=== PATIENT | female | born 1975 | race Caucasian/White ===

== ENCOUNTER 2020-11-11 08:08 | Outpatient (CLI) | payer OTHER, SELFPAY | END 2020-11-11 08:09 | disposition home or self-care (01) | LOC: ANHCOVIDVC 08:08 | PROVIDERS: PCP Obstetrics & Gynecology | DX: Z23 Encounter for immunization (principal) | CPT/HCPCS: 0001A; 91300 ==

== ENCOUNTER 2020-12-02 08:01 | Outpatient (CLI) | payer OTHER, SELFPAY | END 2020-12-02 08:02 | disposition home or self-care (01) | LOC: ANHCOVIDVC 08:01 | PROVIDERS: PCP Obstetrics & Gynecology | DX: Z23 Encounter for immunization (principal) | CPT/HCPCS: 0002A; 91300 ==

== ENCOUNTER → 2021-08-14 08:44 | Outpatient (CLI) | payer OTHER, SELFPAY ==
--- NOTE | ~2021-08-14 | US_ITS ---
EXAMINATION: US transvaginal EXAM DATE: 08/14/2021 09:12 INDICATION: Severe LLQ adnexal pain. TECHNIQUE: Pelvic transvaginal sonogram was performed. There are multiple grayscale and Doppler imag es available for interpretation. There is no prior study for comparison. FINDINGS: Uterus measures 7.7 x 4.0 x 4.3 cm, with posterior myometrial fibroid measuring 1.4 cm. Th ere is also IUD suspected to be in place within the endometrial cavity. Endometrial stripe measures 4 mm, within normal limits. There is no free pelvic fluid. Right adnexa: The ovary measures 2.2 x 1.4 x 1.9 cm and is morphologically normal. Ovarian vascular f low confirmed. Left adnexa: The ovary measures 3.6 x 1.8 x 2.3 cm and is morphologically normal. Ovarian vascular fl ow confirmed. IMPRESSION: 1. IUD in expected position. 2. Small fibroid. 3. Normal ovaries. Reviewed, dictated and finalized at location B. [employer]
== END ==
PROVIDERS: PCP Family Medicine; Visit Provider Nurse Practitioner
DX: R10.32 Left lower quadrant pain (principal); Z97.5 Presence of (intrauterine) contraceptive device; D25.9 Leiomyoma of uterus, unspecified
CPT/HCPCS: 76830

== ENCOUNTER 2023-08-23 00:24 | Day surgery (SDC) | payer OTHER, SELFPAY ==
[2023-07-26 15:01] VITALS: BMI 41.8
--- NOTE | 2023-08-19 12:22 | SUR.PREOP ---
Patient called regarding upcoming procedure. Reviewed preop instructions, appointment times, and procedure prep.
[2023-08-23 06:26] VITALS: BP 116/75; PULSE 88; RESP 18; TEMP 36.1; O2SAT 98
[2023-08-23] MEDS: LACTATED RINGERS 1,000 ML 150 ML IV CONT (06:45)
[2023-08-23 06:46] LABS: Glucose Point of Care 160 mg/dl (65-105)
--- NOTE | 2023-08-23 07:25 | WPDANESEPPF ---
Anes - Initial Pre Proc Eval Procedure: Operation Date: 08/23/23 07:30 Proposed Procedures p Colonoscopy - Yahir Thakkar MD Date/Time: 08/23/23 07:25 Surgeon: Yahir Thakkar MD Pre Op Diagnosis: neoplasm screening Patient Data Age: 47 Gender: F Height: 1.6 m Weight: 113.2 kg Last Vital Signs Temp 97 F L 08/23/23 06:26 Pulse 88 08/23/23 06:26 Resp 18 08/23/23 06:26 BP 116/75 08/23/23 06:26 Pulse Ox 98 08/23/23 06:26 O2 Del Method Room Air 08/23/23 06:26 Allergies Allergy/AdvReac Type Severity Reaction Status Date / Time Penicillins Allergy Severe Anaphylaxis Verified 08/23/23 06:25 Home Medications Medication Instructions Recorded Confirmed Type atorvastatin 10 mg tablet 10 mg PO DAILY 06/06/23 07/26/23 History cinnamon bark 500 mg capsule 1,000 mg PO DAILY 06/06/23 07/26/23 History clobetasol 0.05 % topical ointment 1 applic topical DAILY PRN other 06/06/23 07/26/23 History fluoxetine 20 mg capsule 40 mg PO DAILY 06/06/23 07/26/23 History metformin 500 mg tablet,extended 1,000 mg PO DAILY 06/06/23 07/26/23 History release 24 hr multivit-iron 18 mg-folic acid 400 1 tablet PO DAILY 06/06/23 07/26/23 History mcg-calcium 500 mg-minerals tablet (One-A-Day Womens Formula) naproxen sodium 220 mg capsule 440 mg PO DAILY 06/06/23 07/26/23 History semaglutide 0.25 mg or 0.5 mg (2 0.5 mg subcut WEEKLY 06/06/23 07/26/23 History mg/3 mL) subcutaneous pen injector (Ozempic) zinc gluconate 50 mg tablet 50 mg PO DAILY 06/06/23 07/26/23 History Laboratory Tests 08/23/23 06:43 POC Capillary Glucose 160 H mg/dl (65-105) Patient hx anesthesia problems: none Family hx anesthesia problems: none Results Review: All pre-operative results and documents have been reviewed as part of the pre-operative evaluation. [facility] Past Medical History Medical History (Updated 06/06/23 @ 10:37 by Beena Kay NP) Allergies Anxiety Diabetes Hyperlipidemia due to type 2 diabetes mellitus Irritable bowel syndrome Family History Family History (Updated 06/06/23 @ 09:41 by Claritza Nguyen [facility]) Father Skin cancer Diabetes mellitus Heart disease Hypertension Anxiety Depression Grandparent Skin cancer maternal grandparent Diabetes mellitus Grandparent Cancer paternal grandparent Diabetes mellitus Mother Diabetes mellitus Heart disease Hypertension Anxiety Depression Other Breast cancer Social History Social History (Updated 06/06/23 @ 09:42 by Claritza Nguyen [facility]) Smoking status: Never smoker Alcohol intake: current Alcohol use details: occasional Substance use type: does not use Lack of Transportation: No Lack of Food: Never True Current Housing: I Have Housing Concerned About Future Housing: No Difficulty Paying Gas/Electric Bills: No Difficulty Paying for Meds: No Currently Unemployed: No Education: Master's Degree or Higher Difficulty w/ Childcare or Family Care: No Living arrangements: with family Spiritual care concerns: No Anes - Eval Final PreProcedure Day of Procedure 08/23/23 07:25 Patient weight: morbidly obese Heart: regular rate and rhythm Lungs: clear to auscultation Airway: Mallampati scale class III Neurological: alert and oriented Last oral intake: >/= 8 hours ASA classification: III Emergent: no Anesthetic plan: proceed Anesthesia type and monitoring: general GIVS and standard monitoring Results Review: All pre-operative results and documents have been reviewed as part of the pre-operative evaluation. Informed Consent: The patient's anesthetic plan and its attendant risks and benefits were discussed with the patient/family/POA. Questions were solicited and answers provided to the satisfaction of the patient/family/POA.
--- NOTE | 2023-08-23 07:28 | PM.HPGS ---
History of Present Illness History of Present Illness Consent: Risks, benefits, and alternatives have been discussed and questions answered. Patient agrees to proceed with procedure. Chief complaint: neoplasm screening Narrative: Valerie Soto is a 47 year old female here for first screening colonoscopy Review of Systems Constitutional: Constitutional: Denies headache(s) and Denies weakness Eyes: Eyes: Denies blurry vision ENT: Reports Normal hearing present, Denies headache(s) and Denies neck pain Cardiovascular: Cardiovascular: Denies chest pain and Denies dyspnea Respiratory: Respiratory: Denies dyspnea Gastrointestinal: Gastrointestinal: Reports no additional gastrointestinal complaints Genitourinary: Genitourinary: Denies dysuria Musculoskeletal: Musculoskeletal: Denies neck pain Integumentary/Breasts: Skin/Breast: Denies dry skin Neurologic: Reports Normal hearing present, Denies headache(s) and Denies weakness Psychiatric: Psychiatric: Denies anxiety Endocrine: Endocrine: Denies change in body appearance Hematologic/Lymphatic: Hematologic/Lymphatic: Denies easy bleeding Allergic/Immunologic: Allergic/Immunologic: Denies urticaria PMFSH Past Medical History Medical History (Updated 06/06/23 @ 10:37 by Beena Kay NP) Allergies Anxiety Diabetes Hyperlipidemia due to type 2 diabetes mellitus Irritable bowel syndrome Family History Family History (Updated 06/06/23 @ 09:41 by Claritza Nguyen CMA) Father Skin cancer Diabetes mellitus Heart disease Hypertension Anxiety Depression Grandparent Skin cancer maternal grandparent Diabetes mellitus Grandparent Cancer paternal grandparent Diabetes mellitus Mother Diabetes mellitus Heart disease Hypertension Anxiety Depression Other Breast cancer Social History Social History (Updated 06/06/23 @ 09:42 by Claritza Nguyen CMA) Smoking status: Never smoker Alcohol intake: current Alcohol use details: occasional Substance use type: does not use Lack of Transportation: No Lack of Food: Never True Current Housing: I Have Housing Concerned About Future Housing: No Difficulty Paying Gas/Electric Bills: No Difficulty Paying for Meds: No Currently Unemployed: No Education: Master's Degree or Higher Difficulty w/ Childcare or Family Care: No Living arrangements: with family Spiritual care concerns: No Meds Home Medications and Allergies Home Medications Medication Instructions Recorded Confirmed Type atorvastatin 10 mg tablet 10 mg PO DAILY 06/06/23 07/26/23 History cinnamon bark 500 mg capsule 1,000 mg PO DAILY 06/06/23 07/26/23 History clobetasol 0.05 % topical ointment 1 applic topical DAILY PRN other 06/06/23 07/26/23 History fluoxetine 20 mg capsule 40 mg PO DAILY 06/06/23 07/26/23 History metformin 500 mg tablet,extended 1,000 mg PO DAILY 06/06/23 07/26/23 History release 24 hr multivit-iron 18 mg-folic acid 400 1 tablet PO DAILY 06/06/23 07/26/23 History mcg-calcium 500 mg-minerals tablet (One-A-Day Womens Formula) naproxen sodium 220 mg capsule 440 mg PO DAILY 06/06/23 07/26/23 History semaglutide 0.25 mg or 0.5 mg (2 0.5 mg subcut WEEKLY 06/06/23 07/26/23 History mg/3 mL) subcutaneous pen injector (Likeeds) zinc gluconate 50 mg tablet 50 mg PO DAILY 06/06/23 07/26/23 History Allergies Allergy/AdvReac Type Severity Reaction Status Date / Time Penicillins Allergy Severe Anaphylaxis Verified 08/23/23 06:25 Vital Signs Vital Signs - 24 hr 08/23/23 06:26 Temperature 97 F L Pulse Rate 88 Respiratory Rate 18 Blood Pressure 116/75 Pulse Oximetry 98 Oxygen Delivery Room Air Exam Const: General: comfortable and no acute distress HENMT: Face/Nose/Sinus: Normal nares present Eyes: General: appearance normal, both eyes and all related structures Neck: Neck: no JVD Resp: Auscultation: clear to auscultation bilaterally Ca
[2023-08-23 07:46] VITALS: BP 116/57; PULSE 101; RESP 18; O2SAT 97
[2023-08-23 07:56] VITALS: BP 100/54; PULSE 95; RESP 20; O2SAT 100
[2023-08-23 08:06] VITALS: BP 109/69; PULSE 87; RESP 18; O2SAT 98
== END 2023-08-23 08:18 | disposition home or self-care (01) ==
PROVIDERS: PCP Internal Medicine; Referring Provider Nurse Practitioner; Visit Provider Internal Medicine Gastroenterology
PROC: 0DJD8ZZ Inspection of Lower Intestinal Tract, Via Natural or Artificial Opening Endoscopic (ICD-10-PCS; CPT 45378; principal; 2023-08-23 07:30)
DX: Z12.11 Encounter for screening for malignant neoplasm of colon (principal); K63.5 Polyp of colon; K64.8 Other hemorrhoids; E11.9 Type 2 diabetes mellitus without complications; E78.5 Hyperlipidemia, unspecified; K58.9 Irritable bowel syndrome, unspecified; F41.9 Anxiety disorder, unspecified; E66.01 Morbid (severe) obesity due to excess calories; Z68.41 Body mass index [BMI] 40.0-44.9, adult; Z79.84 Long term (current) use of oral hypoglycemic drugs; Z79.85 Long-term (current) use of injectable non-insulin antidiabetic drugs
CPT/HCPCS: 45385; 82948; 88305; J2704; J7120

== ENCOUNTER → 2023-09-28 15:50 | Outpatient (CLI) | payer OTHER, SELFPAY ==
--- NOTE | ~2023-09-28 | MM_ITS ---
EXAMINATION: MM screening louann BI w joan HISTORY: Screening mammogram TECHNIQUE: Craniocaudal and mediolateral oblique 3-D tomosynthesis images were obtained and synthetic 2-D images were generated. CAD analysis was submitted and interpreted. COMPARISON: No prior mammogram is available for comparison at this institution. BREAST PARENCHYMAL COMPOSITION: There are scattered areas of fibroglandular density. FINDINGS: Right breast: An asymmetry is present in the anterior third of the slightly outer breast 3.5 cm from the nipple on the craniocaudal view. A second asymmetry is seen in the middle/posterior third of the outer breast 10 cm from the nipple on the craniocaudal view. Left breast: An asymmetry is present in the middle third of the outer breast 10 cm from the nipple on the craniocaudal view. A subareolar asymmetry is also noted on the craniocaudal view. Changes of exc isional biopsy with associated fat necrosis are noted in the posterior third of the upper breast. IMPRESSION: 1. Bilateral breast findings as described above which may represent the patient's baseline however no comparison is currently available. 2. Comparison with prior mammograms is necessary. BI-RADS Category 0: Incomplete: Needs comparison with prior mammograms. Reviewed, dictated and finalized at location L. [employer] SUPER[employer] IMPRESSION: 1. Bilateral breast findings as described above which may represent the patient 's baseline however no comparison is currently available. 2. Comparison with prior mammograms is necessary. BI-RADS Category 0: Incomplete: Needs comparison with prior mammograms.
== END ==
PROVIDERS: PCP Nurse Practitioner; Visit Provider Nurse Practitioner
DX: Z12.31 Encounter for screening mammogram for malignant neoplasm of breast (principal); R92.8 Other abnormal and inconclusive findings on diagnostic imaging of breast
CPT/HCPCS: 77063; 77067

== ENCOUNTER 2024-11-07 15:29 | Outpatient (CLI) | payer OTHER, SELFPAY ==
--- NOTE | ~2024-11-07 | MM_ITS ---
EXAMINATION: MM screening louann BI w joan HISTORY: Screening TECHNIQUE: Craniocaudal and mediolateral oblique 3-D tomosynthesis images were obtained and synthetic 2-D images were generated. CAD analysis was submitted and interpreted. COMPARISON: Comparison to multiple prior studies sequentially, with oldest reviewed study dated 02/2021. BREAST PARENCHYMAL COMPOSITION: Not dense: There are scattered areas of fibroglandular density. FINDINGS: The left breast is stable without evidence for malignancy. There is focal fat necrosis in t he upper inner quadrant of the left breast, posteriorly with developing calcifications. There are dev eloping asymmetries laterally in the right breast on CC view. IMPRESSION: 1. Developing right breast asymmetries laterally on CC view. 2. Additional mammographic views and possible breast ultrasound are recommended. BI-RADS Category 0: Incomplete: Needs additional imaging evaluation. Reviewed, dictated and finalized at location B. IMPRESSION: 1. Developing right breast asymmetries laterally on CC view. 2. Additional mammographic views and possible breast ultrasound are recommended . BI-RADS Category 0: Incomplete: Needs additional imaging evaluation.
== END 2024-11-07 15:30 | disposition home or self-care (01) ==
LOC: MICIMG 15:29
PROVIDERS: PCP Internal Medicine; Visit Provider Nurse Practitioner
DX: Z12.31 Encounter for screening mammogram for malignant neoplasm of breast (principal); R92.8 Other abnormal and inconclusive findings on diagnostic imaging of breast
CPT/HCPCS: 77063; 77067

== ENCOUNTER 2024-11-27 08:25 | Outpatient (CLI) | payer OTHER, SELFPAY ==
--- NOTE | ~2024-11-27 | MMUS_ITS ---
EXAMINATION: MM diagnostic louann RT w joan, US breast RT limited HISTORY: Follow-up right breast asymmetries TECHNIQUE: Additional 3-D tomosynthesis images of the right breast were performed and synthetic 2-D i mages were generated. CAD analysis was submitted and interpreted. High resolution Limited right breas t ultrasound was performed. COMPARISON: Comparison to multiple prior studies sequentially, with oldest reviewed study dated 05/26. BREAST PARENCHYMAL COMPOSITION: Not dense: There are scattered areas of fibroglandular density. FINDINGS: MAMMOGRAPHIC FINDINGS: There is an obscured mass in the upper outer quadrant of the right breast, middle third. There are no suspicious calcifications or architectural distortion. ULTRASOUND: Limited right breast ultrasound: L 1:00, 6 cm from the nipple there is a round hypoechoic mass measur ing 4 mm without internal vascularity. No significant posterior features. IMPRESSION: 1. Probable benign findings of the right breast. 2. Recommend 6 month follow-up diagnostic right mammogram and Limited right breast ultrasound BI-RADS category 3, probably benign findings. Reviewed, dictated and finalized at location A. IMPRESSION: 1. Probable benign findings of the right breast. 2. Recommend 6 month follow-up diagnostic right mammogram and Limited right shailesh ast ultrasound BI-RADS category 3, probably benign findings.
== END 2024-11-27 08:26 | disposition home or self-care (01) ==
LOC: MICIMG 08:26
PROVIDERS: PCP Internal Medicine; Visit Provider Nurse Practitioner
DX: N64.89 Other specified disorders of breast (principal)
CPT/HCPCS: 76642; 77061; 77065; G0279